=== PATIENT | female | born 1970 | race American Indian/Alaskan Native ===

== ENCOUNTER 2018-02-17 11:39 | Emergency (ER) | payer SELFPAY ==
[2018-02-17 12:03] VITALS: BP 124/67
--- NOTE | 2018-02-17 13:10 | Emergency Department Report ---
ED ENT HPI - General Chief complaint: Skin/Abscess/Foreign Body Stated complaint: CHOKING Source: patient Mode of arrival: Ambulatory Limitations: No Limitations - History of Present Illness Initial comments: This is a 48-year-old -[place] female who presents with sensation of foreign object in. Patient states she was eating in the p.m. peanut butter and jelly established this morning when she had difficulty swallowing a piece of sandwich. Patient admits to past medical history of GERD. She is currently off medication. She also admits to burning sensation. Patient states this feels much different than prior GERD flare. She denies difficulties swallowing , chest pain, shortness of breath, nausea or vomiting. MD complaint: foreign body (foreign body sensation of throat) -: This morning Location: throat Severity: mild Severity scale (0 -10): 0 Consistency: now resolved Improves with: swallowing Worsens with: eating - Related Data Previous Rx's Medication Instructions Recorded Last Taken Type Omeprazole 40 mg PO DAILY #30 capsule. 02/17/18 Unknown Rx Allergies Allergy/AdvReac Type Severity Reaction Status Date / Time aspirin Allergy Unknown Verified 02/17/18 11:58 NSAIDS (Non-Steroidal Allergy Unknown Verified 02/17/18 11:57 Anti-Inflamma ED Dental HPI - General Chief complaint: Skin/Abscess/Foreign Body Stated complaint: CHOKING Source: patient Mode of arrival: Ambulatory Limitations: No Limitations - Related Data Previous Rx's Medication Instructions Recorded Last Taken Type Omeprazole 40 mg PO DAILY #30 capsule. 02/17/18 Unknown Rx Allergies Allergy/AdvReac Type Severity Reaction Status Date / Time aspirin Allergy Unknown Verified 02/17/18 11:58 NSAIDS (Non-Steroidal Allergy Unknown Verified 02/17/18 11:57 Anti-Inflamma ED Review of Systems ROS: Stated complaint: CHOKING Other details as noted in HPI ENT: throat pain (sensation of foreign object in throat). denies: ear pain Respiratory: denies: cough, shortness of breath, wheezing Cardiovascular: denies: chest pain, palpitations Gastrointestinal: denies: abdominal pain, nausea, diarrhea Skin: denies: rash, lesions Neurological: denies: headache, weakness, paresthesias Psychiatric: denies: anxiety, depression ED Past Medical Hx - Past Medical History Previous Medical History?: Yes Additional medical history: gerd - Surgical History Past Surgical History?: No - Social History Smoking Status: Never Smoker Substance Use Type: None - Medications Home Medications: Home Medications Medication Instructions Recorded Confirmed Last Taken Type Omeprazole 40 mg PO DAILY #30 capsule. 02/17/18 Unknown Rx ED Physical Exam - General Limitations: No Limitations General appearance: alert, in no apparent distress - ENT ENT exam: Present: mucous membranes moist - Neck Neck exam: Present: normal inspection, full ROM. Absent: tenderness, meningismus, lymphadenopathy, thyromegaly - Respiratory Respiratory exam: Present: normal lung sounds bilaterally. Absent: respiratory distress - Cardiovascular Cardiovascular Exam: Present: regular rate, normal rhythm. Absent: systolic murmur, diastolic murmur, rubs, gallop - GI/Abdominal GI/Abdominal exam: Present: soft, normal bowel sounds - Neurological Exam Neurological exam: Present: alert, oriented X3 - Psychiatric Psychiatric exam: Present: normal affect, normal mood - Skin Skin exam: Present: warm, dry, intact, normal color. Absent: rash ED Course Vital Signs 02/17/18 11:59 Temperature 99.4 F Pulse Rate 88 Respiratory 16 Rate Blood Pressure 124/67 O2 Sat by Pulse 96 Oximetry ED Medical Decision Making - Radiology Data Radiology results: report reviewed X-ray of the neck soft tissue impression: No radiopaque foreign bodies identified. Soft tissues are unremarkable. Degenerative disc disease cervical spine as described. - Medical Decision Making Patient was examined by me. Vitals are normal and patient is in no acute distress. Obtained a x-ray of the neck soft tissue. X-rays dictated by radiologist and report reviewed by myself. No radiopaque foreign bodies identified. Soft tissues are unremarkable. Degenerative disc disease cervical spine as described. Patient informed of results. She has past medical history of GERD of medication for several years. Will restart medication for GERD and have patient follow-up with PCP. Start omeprazole for GERD. Patient discharged home in stable condition. Follow up with PCP in 2-3 days. Critical care attestation.: If time is entered above; I have spent that time in minutes in the direct care of this critically ill patient, excluding procedure time. ED Disposition Clinical Impression: Foreign body sensation in throat, GERD with esophagitis Disposition: TO HOME OR SELFCARE Is pt being admited?: No Does the pt Need Aspirin: No Condition: Stable Instructions: Gastroesophageal Reflux Disease (ED) Additional Instructions: Start taking omeprazole one by mouth daily for symptomatic relief. Follow-up with primary care provider in the next week for further evaluation. Return to emergency room if short of breath, chest pain, difficulty swallowing, or return of sensation in throat. Prescriptions: Omeprazole 40 mg PO DAILY #30 capsule. Referrals: [facility] [Outside] - 3-5 Days [facility] [Outside] - 3-5 Days [facility] [Outside] - 3-5 Days Time of Disposition: 14:43
--- NOTE | 2018-02-17 14:27 | XRay Report ---
FINAL REPORT PROCEDURE: XR NECK SOFT TISSUE TECHNIQUE: AP and lateral view of the neck was obtained with soft tissue technique. HISTORY: foreign object sensation of throat COMPARISON: No prior studies are available for comparison. FINDINGS: Tracheal air shadow is midline. Prevertebral soft tissues appear normal. No radiopaque foreign bodies are identified. Epiglottis is unremarkable. Degenerative disc changes are visualized in the mid and lower cervical spine with mild disc space narrowing and anterior osteophyte formation. IMPRESSION: No radiopaque foreign bodies identified. Soft tissues are unremarkable. Degenerative disc disease cervical spine as described.
== END 2018-02-17 14:49 | disposition home or self-care (01) ==
LOC: ED 11:39
DX: K21.0 Gastro-esophageal reflux disease with esophagitis (principal); Z88.6 Allergy status to analgesic agent
CPT/HCPCS: 70360; 99283